=== PATIENT | male | born 1990 ===

== ENCOUNTER 2016-05-08 17:38 | Emergency (ER) | payer BC ==
--- NOTE | 2016-05-08 18:17 | UC ---
Lower Extremity/Ankle HPI - HPI Summary HPI Summary: complaint of pain in right ankle that started last night missed a step and landed on inverted ankle was able to ambulate on it after injury constant aching pain worse with ambulation elevating and resting ankle lessens the pain not taking any medications for pain - History of Current Complaint Chief Complaint: UCLowerExtremity Stated Complaint: ANKLE INJURY Time Seen by Provider: 05/08/16 18:03 Hx Obtained From: Patient - Allergies/Home Medications Allergies/Adverse Reactions: Allergies Allergy/AdvReac Type Severity Reaction Status Date / Time No Known Allergies Allergy Verified 05/08/16 18:03 Home Medications: Home Medications NK [No Home Medications Reported] 05/08/16 [History Confirmed 05/08/16] PMH/Surg Hx/FS Hx/Imm Hx Previously Healthy: Yes - Surgical History Surgical History: None - Family History Known Family History: Negative: Cardiac Disease, Hypertension, Diabetes - Social History Occupation: Student Alcohol Use: Rare Substance Use Type: None Smoking Status (MU): Never Smoked Tobacco Review of Systems Constitutional: Negative Skin: Negative Eyes: Negative ENT: Negative Respiratory: Negative Cardiovascular: Negative Gastrointestinal: Negative Genitourinary: Negative Motor: Negative Neurovascular: Negative Musculoskeletal: Other: - right ankle pain Neurological: Negative Psychological: Negative All Other Systems Reviewed And Are Negative: Yes Physical Exam Triage Information Reviewed: Yes Appearance: No Pain Distress, Well-Nourished Vital Signs: Initial Vital Signs Temp 99 F 05/08/16 17:58 Pulse 58 05/08/16 17:58 Resp 16 05/08/16 17:58 BP 126/64 05/08/16 17:58 Pulse Ox 98 05/08/16 17:58 Vital Signs Reviewed: Yes ENT: Positive: Pharynx normal, TMs normal Neck: Positive: No Lymphadenopathy Respiratory: Positive: Lungs clear, Normal breath sounds, No respiratory distress Cardiovascular: Positive: RRR, No Murmur, Pulses Normal Abdomen Description: Positive: Nontender, Soft Bowel Sounds: Positive: Present Musculoskeletal: Positive: Other: - No bony deformities, tenderness and edema in lateral side of ankle,no pian in metatarsals, pain with inversion Full ROM dorsi/plantar flexion, & eversion. Monument test negative. Neurological: Positive: Alert Psychological Exam: Normal Skin Exam: Normal Lower Extremity Course/Dx - Course Course Of Treatment: exam completed - Differential Dx/Diagnosis Differential Diagnosis/HQI/PQRI: Fracture (Closed), Sprain, Strain Provider Diagnoses: right ankle sprain Discharge - Discharge Plan Condition: Stable Disposition: HOME Patient Education Materials: Ankle Sprain (ED) Referrals: [facility] [place] [facility] [Outside] [facility] [Outside] Additional Instructions: Your blood pressure is pre-hypertensive reading. Please contact your primary care provider within 1 day -4 weeks for further evaluation. ANKLE SPRAIN What is an Ankle Sprain? An ankle sprain is a partial or complete tearing of the ligaments that support the ankle joint. Most ankle sprains affect the ligaments on the outside of the joint. X-rays will not show ligament injury and are often not needed for simple sprains. Symptoms Might Include: Pain in your ankle, foot, or lower leg area Bruising and/or Swelling Possible deformity (bones not lined up as usual) Treatment Recommendations: You should prop your foot up above the level of your heart for the first 24 to 48 hours. This helps cut down on the pain and swelling. You should put an ice pack wrapped in a towel on the injured area for 15 to 20 minutes every 2 to 3 hours when you are awake for the first 2 to 3 days. A compression dressing, like a Velcro splint or Andrew wrap, will help give support and cut down on swelling. If the wrap is too tight, it may cause numbness, tingling, paleness, or a cool feeling. If this happens, the wrap should be taken off and put back on looser. Crutches should be used if there is any pain when you put your weight on your foot. You usually only need to use crutches for the first few days. If you have a more severe sprain you might need to use them longer. As the pain gets better , try to walk without the crutches a little at a time until you can walk without any pain. When your sprain starts to get better you should start exercising. Sit with your ankle off the ground and move it around in all directions 4 to 6 times a day as long as it is not painful. When you can walk without crutches, slowly start to increase your activity by walking short distances. Remember not to overdo it. It may take 3 to 4 weeks to completely get better, even for a mild sprain. It can take much longer for more severe sprains. More severe sprains will need a splint. You will need to see a healthcare provider again in the next 2 to 3 days. [id number] anti-inflammatory medicine like ibuprofen (Motrin, Advil) or naproxen (Aleve) may help with both the pain and the swelling in your joints. You should not take these medicines if you have a history of bleeding in your stomach. The healthcare provider may give you a prescription for a narcotic pain medicine to ease the pain. Do not drive or do things that need your full attention after taking this medication. Call Your Doctor or Return Here IF: You have a lot more pain or swelling. If the pain is not getting better in 3 days. If you start to have numbness or tingling in your foot or ankle. If the injured area starts to feel cool to the touch or is pale or bluish in color. If you start to have any other symptoms that worry you.
[2016-05-08] MEDS ORDERED: Ibuprofen TAB* 400 MG PO ONE (18:21)
--- NOTE | 2016-05-08 19:06 | RAD ---
HISTORY: Right ankle trauma COMPARISONS: None VIEWS: 2, Frontal and lateral views of the right ankle FINDINGS: BONE DENSITY: Normal. BONES: There is a well-corticated bone fragment along the distal fibula. There is no acute displaced fracture. JOINTS: There is no arthropathy. ALIGNMENT: There is no dislocation. SOFT TISSUES: There is circumferential soft tissue swelling OTHER FINDINGS: None. IMPRESSION: SOFT TISSUE SWELLING, WITH SIGNS OF REMOTE TRAUMA TO THE LATERAL MALLEOLUS.. NO ACUTE OSSEOUS INJURY. IF SYMPTOMS PERSIST, RECOMMEND REPEAT IMAGING.
== END 2016-05-08 19:48 | disposition home or self-care (01) ==
LOC: UCEAST 17:38
DX: S93.401A Sprain of unspecified ligament of right ankle, initial encounter (principal); X50.1XXA Overexertion from prolonged static or awkward postures, initial encounter; Y93.9 Activity, unspecified; Y92.9 Unspecified place or not applicable
CPT/HCPCS: 99203; A9270-GY; G0463